=== PATIENT | female | born 1965 | race Caucasian/White ===

== ENCOUNTER 2016-03-23 07:41 | Observation (INO) | payer BC, OTHER ==
[2016-03-23] MEDS ORDERED: SODIUM CHLORIDE 1,000 ML IV STA (08:15)
[2016-03-23] MEDS ORDERED: ACTIVATED CHARCOAL 260 MG CAPSULE PO ONE (08:20)
--- NOTE | 2016-03-23 08:22 | PDOC ---
History of Present Illness - History of Present Illness Initial Comments: 03/23/16 08:26 The patient is a 50 year old female with history of Sjogren's syndrome, hypertension, asthma who presents to the ED after an accidental overdose this morning. She states she was started on 0.1 mg of Clonidine and a Prednisone taper yesterday for an acute Sjogren flare up. This morning around 6:30 she accidentally took 6 Clonidine's after mistaking the bottle for Prednisone, prompting her to come to the ED. She complains of mild, squeezing headache and mild lightheadedness on evaluation. No chest pain or shortness of breath. No LOC. <Mildred Mccord - Last Filed: 03/23/16 08:54> - General History Source: Patient Exam Limitations: No Limitations <Eugenio Duff - Last Filed: 03/23/16 10:22> - General Chief Complaint: Overdose Stated Complaint: LIGHT HEADACHE Time Seen by Provider: 03/23/16 08:04 Past History <Mildred Mccord - Last Filed: 03/23/16 08:54> - Past Medical History Asthma: Yes HTN: Yes Other medical history: SJORGRENS - Surgical History Appendectomy: Yes Cholecystectomy: Yes - Psycho/Social/Smoking Cessation Hx Suicidal Ideation: No Smoking History: Never smoked Hx Alcohol Use: Yes (SOCIAL) Drug/Substance Use Hx: No Substance Use Type: None <Eugenio Duff - Last Filed: 03/23/16 10:22> - Past Medical History Allergies/Adverse Reactions: Allergies Allergy/AdvReac Type Severity Reaction Status Date / Time Sulfa (Sulfonamide Allergy Rash Verified 03/23/16 07:47 Antibiotics) banana AdvReac Vomiting Verified 03/23/16 07:49 Home Medications: Ambulatory Orders Albuterol Sulfate [Proair Respiclick] 1 inh IH QID PRN 03/23/16 Celecoxib [Celebrex] 200 mg PO DAILY PRN 03/23/16 Cetirizine HCl [Zyrtec -] 10 mg PO DAILY 03/23/16 Cevimeline HCl [Evoxac] 30 mg PO TID 03/23/16 Clonidine HCl [Clonidine HCl ER] 0.1 mg PO DAILY 03/23/16 Esomeprazole Magnesium [Nexium 24Hr] 40 mg PO DAILY 03/23/16 Gabapentin [Neurontin] 300 mg PO DAILY 03/23/16 Hydroxychloroquine Sulfate [Plaquenil] 400 mg PO HS 03/23/16 Montelukast Na [Singulair -] 10 mg PO HS 03/23/16 Olmesartan Medoxomil [Benicar (Nf)] 40 mg PO DAILY 03/23/16 Prednisone [Deltasone] 60 mg PO DAILY 03/23/16 Review of Systems - Review of Systems Able to Perform ROS?: Yes Comments:: 03/23/16 08:29 GENERAL/CONSTITUTIONAL: No fever or chills. No weakness. HEAD, EYES, EARS, NOSE AND THROAT: No change in vision. No ear pain or discharge. No sore throat. CARDIOVASCULAR: No chest pain or shortness of breath. RESPIRATORY: No cough, wheezing, or hemoptysis. GASTROINTESTINAL: No nausea, vomiting, diarrhea or constipation. GENITOURINARY: No dysuria, frequency, or change in urination. MUSCULOSKELETAL: No joint or muscle swelling or pain. No neck or back pain. SKIN: No rash NEUROLOGIC: Diffuse headache, dizziness. No loss of consciousness, or change in strength/sensation. ENDOCRINE: No increased thirst. No abnormal weight change. HEMATOLOGIC/LYMPHATIC: No anemia, easy bleeding, or history of blood clots. ALLERGIC/IMMUNOLOGIC: No hives or skin allergy. <Mildred Mccord - Last Filed: 03/23/16 08:54> *Physical Exam - Vital Signs Last Vital Signs Temp Pulse Resp BP Pulse Ox 97.8 F 81 18 137/73 96 03/23/16 07:43 03/23/16 07:43 03/23/16 07:43 03/23/16 07:43 03/23/16 07:43 - Physical Exam Comments: 03/23/16 08:42 GENERAL: Awake, alert, and fully oriented, in no acute distress HEAD: No signs of trauma EYES: PERRLA, EOMI, sclera anicteric, conjunctiva clear ENT: Auricles normal inspection, hearing grossly normal, nares patent, oropharynx clear without exudates. Moist mucosa NECK: Normal ROM, supple, no lymphadenopathy, JVD, or masses LUNGS: Breath sounds equal, clear to auscultation bilaterally. No wheezes, and no crackles HEART: Regular rate and rhythm, normal S1 and S2, no murmurs, rubs or gallops ABDOMEN: Soft, nontender, normoactive bowel sounds. No guarding, no rebound. No masses EXTREMITIES: Normal range of motion, no edema. No clubbing or cyanosis. No cords, erythema, or tenderness NEUROLOGICAL: Cranial nerves II through XII grossly intact. Normal speech, normal gait SKIN: Warm, Dry, normal turgor, no rashes or lesions noted. <Mildred Mccord - Last Filed: 03/23/16 08:54> - Vital Signs Last Vital Signs Temp Pulse Resp BP Pulse Ox 97.8 F 81 18 137/73 96 03/23/16 07:43 03/23/16 07:43 03/23/16 07:43 03/23/16 07:43 03/23/16 07:43 <Eugenio Duff - Last Filed: 03/23/16 10:22> Heart Score/ECG Review #1 ECG reviewed & interpreted by me at: 08:25 03/23/16 08:26 NSR 74 with 1st degree AV block, T wave flat III, no std/woodrow, normal axis, QTC 455 msec <Eugenio Duff - Last Filed: 03/23/16 10:22> ED Treatment Course - LABORATORY CBC & Chemistry Diagram: 03/23/16 08:20 03/23/16 08:20 <Mildred Mccord - Last Filed: 03/23/16 08:54> - LABORATORY CBC & Chemistry Diagram: 03/23/16 08:20 03/23/16 08:20 <Eugenio Duff - Last Filed: 03/23/16 10:22> Medical Decision Making - Medical Decision Making 03/23/16 08:16 A portion of this note was documented by scribe services under my direction. I have reviewed the details of the note, within reason, and agree with the documentation with the following case summary and management plan written by me. Patient treated in the ED. Nursing notes are reviewed and incorporated into the medical decision-making. Vital signs reviewed. Peripheral IV access obtained by the nurse, laboratory studies are drawn and sent, reviewed and interpreted by myself. Vital Signs Temp Pulse Resp BP Pulse Ox 97.8 F 81 18 137/73 96 03/23/16 07:43 03/23/16 07:43 03/23/16 07:43 03/23/16 07:43 03/23/16 07:43 50-year-old female with past medical history of hypertension, Sjogren syndrome, asthma presents to the emergency department for accidental overdose of 6 tablets of 0.1 mg of clonidine at 6:30 this morning. The patient saw her primary care physician yesterday and was diagnosed with acute flareup of Sjogren syndrome. She was initiated on 6 tablets of 10 mg prednisone daily and for additional assistance with her blood pressure, she was started on 0.1 mg of clonidine daily. This morning, approximately 6:30, the patient thought that she was taking her prednisone because the bottles were the same but she actually took 6 tablets of 0.1 mg of clonidine. Since then, patient started feel tension- like headache and lightheadedness and dizziness but denies any chest pain or shortness of breath. The patient is not altered. I discussed the case with the Poison Control Center. He recommends initiating activated charcoal even if 2 hours postingestion and an observation of the minimum of 14 hours. We'll give IV fluids. When necessary Narcan if patient becomes altered. We'll obtain labs and admit the patient to the hospital for telemetry. 03/23/16 10:21 CBC, BMP 03/23/16 08:20 03/23/16 08:20 CMP Sodium 139 mmol/L (136-145) 03/23/16 08:20 Potassium 3.8 mmol/L (3.5-5.1) 03/23/16 08:20 Chloride 104 mmol/L (98-107) 03/23/16 08:20 Carbon Dioxide 25 mmol/L (21-32) 03/23/16 08:20 Anion Gap 10 (8-16) 03/23/16 08:20 BUN 15 mg/dL (7-18) 03/23/16 08:20 Creatinine 0.7 mg/dL (0.55-1.02) 03/23/16 08:20 Creat Clearance w eGFR > 60 (>60) 03/23/16 08:20 Random Glucose 167 mg/dL (74-106) H 03/23/16 08:20 Calcium 8.7 mg/dL (8.5-10.1) 03/23/16 08:20 Phosphorus 2.7 mg/dL (2.5-4.9) 03/23/16 08:20 Magnesium 2.0 mg/dL (1.8-2.4) 03/23/16 08:20 Total Bilirubin 0.5 mg/dL (0.2-1.0) 03/23/16 08:20 AST 19 U/L (15-37) 03/23/16 08:20 ALT 29 U/L (12-78) 03/23/16 08:20 Alkaline Phosphatase 65 U/L (45-117) 03/23/16 08:20 Creatine Kinase 312 IU/L (26-192) H 03/23/16 08:20 CK-MB (CK-2) 8.402 ng/ml (0.5-3.6) H 03/23/16 08:20 Troponin I < 0.02 ng/ml (0.00-0.05) 03/23/16 08:20 Total Protein 7.6 g/dl (6.4-8.2) 03/23/16 08:20 Albumin 3.7 g/dl (3.4-5.0) 03/23/16 08:20 Urine Test Results Urine Color Ltyellow 03/23/16 08:33 Urine Appearance Clear 03/23/16 08:33 Urine pH 6.0 (5.0-8.0) 03/23/16 08:33 Ur Specific [place] 1.014 (1.001-1.035) 03/23/16 08:33 Urine Protein Negative (NEGATIVE) 03/23/16 08:33 Urine Glucose (UA) Negative (NEGATIVE) 03/23/16 08:33 Urine Ketones Negative (NEGATIVE) 03/23/16 08:33 Urine Blood Negative (NEGATIVE) 03/23/16 08:33 Urine Nitrite Negative (NEGATIVE) 03/23/16 08:33 Urine Bilirubin Negative (NEGATIVE) 03/23/16 08:33 Ur Leukocyte Esterase Negative (NEGATIVE) 03/23/16 08:33 Pt reassessed. Appears well. Case discussed with Dr. Dietrich. Will admit to tele observation. Case discussed in detail with admitting physician including history, physical exam and ancillary studies. Admitting physician has assumed care for the patient, will follow all pending diagnostics and will complete the evaluation and treatment. <Eugenio Duff - Last Filed: 03/23/16 10:22> *DC/Admit/Observation/Transfer - Attestations Scribe Attestion: 03/23/16 08:42 Documentation prepared by Mildred Mccord, acting as medical claims representative for Eugenio Duff MD. <Mildred Mccord - Last Filed: 03/23/16 08:54> - Discharge Dispostion Admit: Yes <Eugenio Duff - Last Filed: 03/23/16 10:22> Diagnosis at time of Disposition: Clonidine overdose Qualifiers: Encounter type: initial encounter Injury intent: accidental or unintentional Qualified Code(s): T46.5X1A - Poisoning by other antihypertensive drugs, accidental (unintentional), initial encounter - Discharge Dispostion Condition at time of disposition: Stable - Referrals Referrals: Bandar Corbett [Primary Care Provider] -
[2016-03-23] MEDS ORDERED: CHARCOAL/WATER SOLUTION 25 GM/120 ML TUBE ONE ×3 (08:30→08:37)
[2016-03-23 08:33] LABS: BASOPHIL 0.2 % (0-2.0); MCH 28.2 pg (25.7-33.7); MCHC 33.3 g/dl (32.0-36.0); MEAN CELL VOLUME 84.8 fl (80-96); MEAN PLT VOLUME 8.1 fl (7.5-11.1); NEUTROPHILS 84.8 % (42.8-82.8); PLATELET COUNT 250 K/MM3 (134-434); RDW 14.3 % (11.6-15.6)
[2016-03-23] MEDS ORDERED: CHARCOAL/SORBITOL SOLUTION 25 GM/120 ML BTL PO ONE (08:36)
[2016-03-23] MEDS ORDERED: ACETAMINOPHEN 325 MG TABLET (FP) PO ONE (08:40)
[2016-03-23 08:44] LABS: INR 1.08 (0.82-1.09); PROTHROMBIN TIME (PATIENT) 11.9 SEC (9.98-11.88)
[2016-03-23 08:47] LABS: ACTIVATED PTT 29.6 SECONDS (26.9-34.4)
[2016-03-23 09:12] LABS: ALBUMIN 3.7 g/dl (3.4-5.0); ANION GAP 10 (8-16); BILIRUBIN,TOTAL 0.5 mg/dL (0.2-1.0); CALCIUM 8.7 mg/dL (8.5-10.1); CO2 25 mmol/L (21-32); CREATININE 0.7 mg/dL (0.55-1.02); GLUCOSE,RANDOM 167 mg/dL (74-106); PHOSPHOROUS 2.7 mg/dL (2.5-4.9); SGOT/AST 19 U/L (15-37); SGPT/ALT 29 U/L (12-78); TOT PROT 7.6 g/dl (6.4-8.2)
[2016-03-23 09:14] LABS: ALK PHOS 65 U/L (45-117); TROPONIN I < 0.02 ng/ml (0.00-0.05)
[2016-03-23 09:27] LABS: URINE APPEARANCE CLEAR; URINE BILIRUBIN NEGATIVE (NEGATIVE); URINE BLOOD NEGATIVE (NEGATIVE); URINE COLOR LTYELLOW; URINE GLUCOSE (UA) NEGATIVE (NEGATIVE); URINE KETONE NEGATIVE (NEGATIVE); URINE LEUK ESTERASE NEGATIVE (NEGATIVE); URINE NITRITE NEGATIVE (NEGATIVE); URINE PROTEIN NEGATIVE (NEGATIVE); URINE UROBILINOGEN NEGATIVE E.U./dl (0.2-1.0)
--- NOTE | 2016-03-23 09:29 | EKG ---
Test Reason : Blood Pressure : / mmHG Vent. Rate : 074 BPM Atrial Rate : 074 BPM P-R Int : 204 ms QRS Dur : 106 ms QT Int : 410 ms P-R-T Axes : 049 013 041 degrees QTc Int : 455 ms NORMAL SINUS RHYTHM NORMAL ECG WHEN COMPARED WITH ECG OF 24-MAY-1998 15:41, QRS DURATION HAS INCREASED Confirmed by MITCH MONTES MD ([id number]) on 03/23/2016 9:29:03 AM Referred By: Confirmed By:MITCH MONTES MD
[2016-03-23] MEDS ORDERED: ALBUTEROL SO4 6.7 GM HFA INHALER IH PRN (11:17)
[2016-03-23] MEDS: SODIUM CHLORIDE 0.45% 1,000 ML IV SCH ×2 (11:30→21:46)
--- NOTE | 2016-03-23 11:33 | HP ---
CHIEF COMPLAINT: "i took too much clonidine) PCP: Dr Peace Rheum: Dr Felipe HISTORY OF PRESENT ILLNESS: This is a 50 yo F with PMH of Sjogen's, HTN and asthma, who presents to ED due to accidental OD on clonidine. She states that she started having a recent exacerbation of sjogens 1 w ago, which affected her L eye, making it feel very dry, irritated, swollen eyelid, conjunctival injection, photophobia and pain with movement of the eye. She also has dry mouth. Her eye has never been affected before. Her PCP placed her on a steroid taper 60 prednisone and on clonidine. this morning she accidentally took 6 clonidines 0.1 instead of prednisone. She complain of mild throbbing h/a and mild lightheadedness. She deneis chest pain, palpitations, visual changes, n/v, abdominal pain, feeling hot or cold, diarrhea, constipation or dysuria. In ed her vitals are stable and her respiration is not suppressed. She states that she feels rather well. ER course was notable for: (1) NS bolus (2) activated charcoal (3)labs, ekg Recent Travel: denies PAST MEDICAL HISTORY: as above PAST SURGICAL HISTORY: cholecystectomy, appendectomy, partial hysterectomy due to fibroid, tonsillectomy Social History: lives at home with sister Smoking: denies Alcohol: 2 drinks/week Drugs: denies Family History: HTN Allergies Sulfa (Sulfonamide Antibiotics) Allergy (Verified 03/23/16 07:47) Rash banana Adverse Reaction (Verified 03/23/16 07:49) Vomiting HOME MEDICATIONS: Medication Instructions Recorded Albuterol Sulfate [Proair 1 inh IH QID PRN 03/23/16 Respiclick] Celecoxib [Celebrex] 200 mg PO DAILY PRN 03/23/16 Cetirizine HCl [Zyrtec -] 10 mg PO DAILY 03/23/16 Cevimeline HCl [Evoxac] 30 mg PO TID 03/23/16 Clonidine HCl [Clonidine HCl ER] 0.1 mg PO DAILY 03/23/16 Esomeprazole Magnesium [Nexium 40 mg PO DAILY 03/23/16 24Hr] Gabapentin [Neurontin] 300 mg PO DAILY 03/23/16 Hydroxychloroquine Sulfate 400 mg PO HS 03/23/16 [Plaquenil] Montelukast Na [Singulair -] 10 mg PO HS 03/23/16 Olmesartan Medoxomil [Benicar (Nf)] 40 mg PO DAILY 03/23/16 Prednisone [Deltasone] 60 mg PO DAILY 03/23/16 REVIEW OF SYSTEMS CONSTITUTIONAL: Absent: fever, chills, diaphoresis, generalized weakness HEENT: Absent: rhinorrhea, nasal congestion, throat pain, throat swelling CARDIOVASCULAR: Absent: chest pain, syncope, palpitations, irregular heart rate, peripheral edema RESPIRATORY: Absent: cough, shortness of breath, orthopnea GASTROINTESTINAL: Absent: abdominal pain, abdominal distension, nausea, vomiting, diarrhea, constipation GENITOURINARY: Absent: dysuria, frequency, urgency MUSCULOSKELETAL: Absent: myalgia, arthralgia SKIN: Absent: rash, itching, pallor HEMATOLOGIC/IMMUNOLOGIC: Absent: frequent infections ENDOCRINE: Absent: heat intolerance, cold intolerance NEUROLOGIC: Absent: focal weakness or paresthesias, unsteady gait, seizure PSYCHIATRIC: Absent: hallucinations. PHYSICAL EXAMINATION Vital Signs - 24 hr 03/23/16 10:42 Pulse Rate [ 79 Apical] Respiratory 20 Rate Blood Pressure 155/89 [Right Arm] O2 Sat by Pulse 100 Oximetry (%) GENERAL: Awake, alert, and fully oriented, in no acute distress. HEAD: Normal with no signs of trauma. EYES: Pupils equal, round and reactive to light, extraocular movements intact, sclera anicteric, L eye injected conjunctiva, edematous eyelid, pain with movement of eye. No lid lag. EARS, NOSE, THROAT: Moist mucous membranes. NECK: supple LUNGS: Breath sounds equal, clear to auscultation bilaterally HEART: Regular rate and rhythm, normal S1 and S2 ABDOMEN: Soft, nontender, not distended, normoactive bowel sounds MUSCULOSKELETAL: No CVA tenderness. UPPER EXTREMITIES: 2+ pulses, No peripheral edema. LOWER EXTREMITIES: 2+ pulses, warm, well-perfused. No calf tenderness. No peripheral edema. NEUROLOGICAL: Cranial nerves II-XII grossly intact. Normal speech. PSYCHIATRIC: Cooperative. Good eye contact. SKIN: Warm, dry ASSESSMENT/PLAN: This is a 50 yo F with PMH of Sjogen's, HTN and asthma, who presents to ED due to accidental OD on clonidine. Clonidine OD -accidental, .06mg total -no OD symptoms at this time -mild h/a: tylenol prn -activated charcoal in ED -IVF bolus, maintenance @ 100 -currently hemodynamically stable -cardiac monitoring -will observe for respiratory supression (intubate to treat) , tachycardia ( atropine to treat), hypotension (fluids and trendelenberg to treat), rebound HTN (nitroprusside to treat) and hypothermia (fabio hugger to treat). Sjogens exacerbation -affecting L eye and mouth -continue rpednisone taper 60 d -plaquenil, cevimeline -f/u with rheumatology and opthalmology outpatient HTN -hold benicar asthma -nebs prn FEN NS@100 lytes stable DVT GI PPX: SCD, diet Na restricted diet Dispo: obs in tele Problem List - Problem (1) Clonidine overdose Code(s): T46.5X1A - POISONING BY OTH ANTIHYPERTN DRUGS, ACCIDENTAL, INIT Qualifiers: Encounter type: initial encounter Injury intent: accidental or unintentional Qualified Code(s): T46.5X1A - Poisoning by other antihypertensive drugs, accidental (unintentional), initial encounter (2) Sjogrens syndrome Code(s): M35.00 - SICCA SYNDROME, UNSPECIFIED (3) HTN (hypertension) Code(s): I10 - ESSENTIAL (PRIMARY) HYPERTENSION (4) Asthma Code(s): J45.909 - UNSPECIFIED ASTHMA, UNCOMPLICATED Visit type - Emergency Visit Emergency Visit: Yes ED Registration Date: 03/23/16 Care time: The patient presented to the Emergency Department on the above date and was hospitalized for further evaluation of their emergent condition. - New Patient This patient is new to me today: Yes Date on this admission: 03/23/16 - Critical Care Critical Care patient: No
[2016-03-23] MEDS ORDERED: CELECOXIB 200 MG CAPSULE PO PRN (11:39)
--- NOTE | 2016-03-23 11:52 | PN ---
Teaching Attending Note Name of Resident: Hilda Luu ATTENDING PHYSICIAN STATEMENT I saw and evaluated the patient. I reviewed the resident's note and discussed the case with the resident. I agree with the resident's findings and plan as documented. SUBJECTIVE: Patient is a 50yo female with PMHx of Sjorgen's ,Asthma, presented to the emergency room since has taken six pills of clonidine of 0.1mg by mistake instead of taking her prednisone (6x10mg =60mg )pills that was given to her by her PMD. stated that she called the poison control center and was suggested to go to the emergency room for further monitoring. Patient was given charcoal in the emergency room. OBJECTIVE: Vital Signs Temperature 97.8 F 03/23/16 07:43 Pulse Rate 79 03/23/16 10:42 Respiratory Rate 20 03/23/16 10:42 Blood Pressure 155/89 03/23/16 10:42 O2 Sat by Pulse Oximetry (%) 100 03/23/16 10:42 GENERAL: Awake, alert, and fully oriented, in no acute distress. HEAD: Normal with no signs of trauma. EYES: Pupils equal, round and reactive to light, extraocular movements intact, sclera anicteric, L eye with edematous eyelid, pain with movement of eye. EARS, NOSE, THROAT: Moist mucous membranes. NECK: supple LUNGS: Breath sounds equal, clear to auscultation bilaterally HEART: Regular rate and rhythm, normal S1 and S2 ABDOMEN: Soft, nontender, not distended, normoactive bowel sounds MUSCULOSKELETAL: No CVA tenderness. UPPER EXTREMITIES: 2+ pulses, No peripheral edema. LOWER EXTREMITIES: 2+ pulses, warm, well-perfused. No calf tenderness. No peripheral edema. NEUROLOGICAL: Cranial nerves II-XII grossly intact. Normal speech. PSYCHIATRIC: Cooperative. Good eye contact. SKIN: Warm, dry CBCD WBC 8.0 K/mm3 (4.0-10.0) 03/23/16 08:20 RBC 4.68 M/mm3 (3.60-5.2) 03/23/16 08:20 Hgb 13.2 GM/dL (10.7-15.3) 03/23/16 08:20 Hct 39.7 % (32.4-45.2) 03/23/16 08:20 MCV 84.8 fl (80-96) 03/23/16 08:20 MCHC 33.3 g/dl (32.0-36.0) 03/23/16 08:20 RDW 14.3 % (11.6-15.6) 03/23/16 08:20 Plt Count 250 K/MM3 (134-434) 03/23/16 08:20 MPV 8.1 fl (7.5-11.1) 03/23/16 08:20 CMP Sodium 139 mmol/L (136-145) 03/23/16 08:20 Potassium 3.8 mmol/L (3.5-5.1) 03/23/16 08:20 Chloride 104 mmol/L (98-107) 03/23/16 08:20 Carbon Dioxide 25 mmol/L (21-32) 03/23/16 08:20 Anion Gap 10 (8-16) 03/23/16 08:20 BUN 15 mg/dL (7-18) 03/23/16 08:20 Creatinine 0.7 mg/dL (0.55-1.02) 03/23/16 08:20 Creat Clearance w eGFR > 60 (>60) 03/23/16 08:20 Random Glucose 167 mg/dL (74-106) H 03/23/16 08:20 Calcium 8.7 mg/dL (8.5-10.1) 03/23/16 08:20 Total Bilirubin 0.5 mg/dL (0.2-1.0) 03/23/16 08:20 AST 19 U/L (15-37) 03/23/16 08:20 ALT 29 U/L (12-78) 03/23/16 08:20 Alkaline Phosphatase 65 U/L (45-117) 03/23/16 08:20 Total Protein 7.6 g/dl (6.4-8.2) 03/23/16 08:20 Albumin 3.7 g/dl (3.4-5.0) 03/23/16 08:20 CARDIAC ENZYMES Creatine Kinase 312 IU/L (26-192) H 03/23/16 08:20 Troponin I < 0.02 ng/ml (0.00-0.05) 03/23/16 08:20 Current Medications Generic Name Dose Route Start Last Admin Trade Name Freq PRN Reason Stop Dose Admin Gabapentin 300 mg 03/24/16 10:00 Neurontin - PO DAILY GILDA Hydroxychloroquine Sulfate 400 mg 03/23/16 22:00 Plaquenil - PO HS GILDA Sodium Chloride 1,000 mls @ 100 mls/hr 03/23/16 11:30 03/23/16 11:30 1/2 Normal Saline IV 100 mls/hr ASDIR GILDA Administration Montelukast Sodium 10 mg 03/23/16 22:00 Singulair - PO HS GILDA Non-Formulary Medication 1 inh 03/23/16 11:17 Albuterol Sulfate [Proair Respiclick] IH QID PRN WHEEZING Medication Instructions Recorded Albuterol Sulfate [Proair 1 inh IH QID PRN 03/23/16 Respiclick] Celecoxib [Celebrex] 200 mg PO DAILY PRN 03/23/16 Cetirizine HCl [Zyrtec -] 10 mg PO DAILY 03/23/16 Cevimeline HCl [Evoxac] 30 mg PO TID 03/23/16 Clonidine HCl [Clonidine HCl ER] 0.1 mg PO DAILY 03/23/16 Esomeprazole Magnesium [Nexium 40 mg PO DAILY 03/23/16 24Hr] Gabapentin [Neurontin] 300 mg PO DAILY 03/23/16 Hydroxychloroquine Sulfate 400 mg PO HS 03/23/16 [Plaquenil] Montelukast Na [Singulair -] 10 mg PO HS 03/23/16 Olmesartan Medoxomil [Benicar (Nf)] 40 mg PO DAILY 03/23/16 Prednisone [Deltasone] 60 mg PO DAILY 03/23/16 ASSESSMENT AND PLAN: This is a 50 yo F with PMHx of Sjogen's, HTN and asthma, who presents to ED due to accidental OD on clonidine. # Accidental Clonidine OD (0.6mg) : comfortable with no acute distress, no signs of hypotension, patient is being admitted for observation in Tele. IVF continue @ 100/hr ,cardiac monitoring # Hx of Sjogens Disease , with L eye swelling on prednisone taper 60mg daily continue plaquenil, cevimeline -f/u with rheumatology and opthalmology outpatient # HTN Uncontrolled will monitor, will not give her any medication since patient has taken 6 of Clonidine with possibility that the BP will drop. # asthma stable continue home meds DVT Px: SCD obs in tele
[2016-03-23] MEDS: predniSONE 20 MG TABLET (UD) PO SCH (12:08)
[2016-03-23] MEDS: LORATADINE 10 MG TABLET PO SCH (12:08)
[2016-03-23] MEDS: PANTOPRAZOLE 40 MG TABLET (FP) PO SCH (12:08)
[2016-03-23 12:17] VITALS: BMI 44.4
[2016-03-23 13:37] LABS: URINE MARIJUANA THC NEGATIVE ng/ml (CUTOFF=50)
[2016-03-23] MEDS ORDERED: ACETAMINOPHEN 325 MG TABLET (FP) PO PRN (13:43)
[2016-03-23] MEDS ORDERED: CEVIMELINE HCL 30 MG PO SCH (14:00)
[2016-03-23 14:06] LABS: SALICYLATE < 4.0 mg/dl (0.0-30.0)
[2016-03-23] MEDS ORDERED: MONTELUKAST NA 10 MG TABLET PO SCH (22:00)
[2016-03-23] MEDS ORDERED: HYDROXYCHLOROQUINE SO4 200 MG TABLET (FP) PO SCH (22:00)
[2016-03-23] MEDS ORDERED: diphenhydrAMINE HCL 25 MG CAPSULE (FP) PO ONE (22:05)
[2016-03-23] MEDS ORDERED: DOCUSATE SODIUM 100 MG CAPSULE (FP) PO ONE (23:00)
[2016-03-24] MEDS ORDERED: PT OWN MED DRAWER 7, Y5N ONE (09:11)
[2016-03-24 09:40] VITALS: BP 154/82; PULSE 74; TEMP 98.2
[2016-03-24] MEDS: PANTOPRAZOLE 40 MG TABLET (FP) PO SCH (09:43)
[2016-03-24] MEDS: predniSONE 20 MG TABLET (UD) PO SCH (09:43)
[2016-03-24] MEDS ORDERED: MAG HYDROX/AL HYDROX/SIMETH 30 ML UNIT-DOSE CUP PO PRN (09:50)
[2016-03-24] MEDS: LORATADINE 10 MG TABLET PO SCH (09:52)
[2016-03-24] MEDS ORDERED: GABAPENTIN 300 MG CAPSULE (FP) PO SCH (10:00)
[2016-03-24] MEDS ORDERED: PATIENT'S OWN MEDICATION (NON-FORMULARY) (Clonidine Hcl [Clonidine Hcl Er] 0.1 MG) PO SCH (11:00)
[2016-03-24] MEDS ORDERED: VALSARTAN 160 MG TABLET (UD) PO SCH (11:00)
[2016-03-24] MEDS ORDERED: cloNIDine HCL 0.1 MG TABLET PO ONE (12:15)
[2016-03-24] MEDS: SODIUM CHLORIDE 0.45% 1,000 ML IV SCH (12:18)
--- NOTE | 2016-03-24 12:58 | PN ---
Teaching Attending Note Name of Resident: Hilda Luu ATTENDING PHYSICIAN STATEMENT I saw and evaluated the patient. I reviewed the resident's note and discussed the case with the resident. I agree with the resident's findings and plan as documented. SUBJECTIVE:states he has increase blurred vision of the Left eye. has appt today to follow up with opthamoligist. denies CP, palpitaitons, ERAZO or dizziness OBJECTIVE: Last Vital Signs Temp Pulse Resp BP Pulse Ox 98.2 F 74 16 154/82 96 03/24/16 09:00 03/24/16 09:00 03/24/16 09:00 03/24/16 09:00 03/24/16 11:00 General NAD HEENT injected conjunctive of L eye CV S1 S2 RRR no murmur/rub/gallop ASSESSMENT AND PLAN: 50yo F with PMH Sjorgen and asthma presented to the ER and was admitted for further evaluation of their emergent condition 1. accidental clonidine overdose- been monitored for 24H at this time. BP controlled. remains asymptomatic. will resume clonidine at accurate dosing 2. Sjorgen- with significant eye involvement. currently on steroids. has appt today to follow up with opthamology 3. d/c home
--- NOTE | 2016-03-24 13:45 | DS ---
Physical Exam: SUBJECTIVE: Patient seen and examined Patient resting in bed NAD. no acute events overnight. afebrile and hemodynamicallys table. BP 170 systolic but no home BP meds given this AM. No events on telemetry. Feels well other than mild heartburn relieved by mylanta and b/l eye discomfort asssocated with sjogens. Denies h/a, chest pain, sob, palpitations, dizziness, n/v, abd pain, diarrhea or dysuria. OBJECTIVE: Vital Signs Period Temp Pulse Resp BP Sys/Davis Pulse Ox Last 24 Hr 96.1 F-98.2 F 67-81 16-20 146-170/80-90 95-98 PHYSICAL EXAM GENERAL: Awake, alert, and fully oriented, in no acute distress. HEAD: Normal with no signs of trauma. EYES: Pupils equal, round and reactive to light, extraocular movements intact, sclera anicteric, L eye injected conjunctiva, edematous eyelid, pain with movement of eye. No lid lag. EARS, NOSE, THROAT: Moist mucous membranes. NECK: supple LUNGS: Breath sounds equal, clear to auscultation bilaterally HEART: Regular rate and rhythm, normal S1 and S2 ABDOMEN: Soft, nontender, not distended, normoactive bowel sounds MUSCULOSKELETAL: No CVA tenderness. UPPER EXTREMITIES: 2+ pulses, No peripheral edema. LOWER EXTREMITIES: 2+ pulses, warm, well-perfused. No calf tenderness. No peripheral edema. NEUROLOGICAL: Cranial nerves II-XII grossly intact. Normal speech. PSYCHIATRIC: Cooperative. Good eye contact. SKIN: Warm, dry LABS HOSPITAL COURSE: Date of Admission:03/23/16 This is a 50 yo F with PMH of Sjogen's, HTN and asthma, who presents to ED due to accidental OD on clonidine. She states that she started having a recent exacerbation of sjogens 1 w ago, which affected her L eye, making it feel very dry, irritated, swollen eyelid, conjunctival injection, photophobia and pain with movement of the eye. She also has dry mouth. Her eye has never been affected before. Her PCP placed her on a steroid taper 60 prednisone and on clonidine. this morning she accidentally took 6 clonidines 0.1 instead of prednisone. She complain of mild throbbing h/a and mild lightheadedness. She deneis chest pain, palpitations, visual changes, n/v, abdominal pain, feeling hot or cold, diarrhea, constipation or dysuria. In ed her vitals are stable and her respiration is not suppressed. She states that she feels rather well. She was placed in obs due to accidental Clonidine OD (.06mg total). She showed no OD symptoms overnight. She [facility] and instructed to f/u with PCP and rheumatology right away for the sjogens exacerbation. Date of Discharge: 03/24/16 Minutes to complete discharge: 30 (na) Discharge Summary Reason For Visit: CLONIDINE OVERDOSE Condition: Stable - Instructions Diet, Activity, Other Instructions: You were observed due to clonidine overdose. you did not exibit any symptoms of overdose. You may resume all of your home medications including clonidine. Be more careful when taking medication, we suggest applying color labels to all the bottles. Please follow up with your primary docotor and your client administrator today to further manage the sjogens exacerbation in the eyes. Return to hospital if severe symptoms emerge Referrals: Bandar Corbett [Primary Care Provider] - 1 Week Disposition: HOME - Home Medications Comprehensive Discharge Medication List: Ambulatory Orders Albuterol Sulfate [Proair Respiclick] 1 inh IH QID PRN 03/23/16 Celecoxib [Celebrex] 200 mg PO DAILY PRN 03/23/16 Cetirizine HCl [Zyrtec -] 10 mg PO DAILY 03/23/16 Cevimeline HCl [Evoxac] 30 mg PO TID 03/23/16 Clonidine HCl [Clonidine HCl ER] 0.1 mg PO DAILY 03/23/16 Esomeprazole Magnesium [Nexium 24Hr] 40 mg PO DAILY 03/23/16 Gabapentin [Neurontin] 300 mg PO DAILY 03/23/16 Hydroxychloroquine Sulfate [Plaquenil] 400 mg PO HS 03/23/16 Montelukast Na [Singulair -] 10 mg PO HS 03/23/16 Olmesartan Medoxomil [Benicar (Nf)] 40 mg PO DAILY 03/23/16 Prednisone [Deltasone] 60 mg PO DAILY 03/23/16 Problem List - Problems (1) Clonidine overdose Code(s): T46.5X1A - POISONING BY OTH ANTIHYPERTN DRUGS, ACCIDENTAL, INIT Qualifiers: Encounter type: initial encounter Injury intent: accidental or unintentional Qualified Code(s): T46.5X1A - Poisoning by other antihypertensive drugs, accidental (unintentional), initial encounter (2) Sjogrens syndrome Code(s): M35.00 - SICCA SYNDROME, UNSPECIFIED (3) HTN (hypertension) Code(s): I10 - ESSENTIAL (PRIMARY) HYPERTENSION (4) Asthma Code(s): J45.909 - UNSPECIFIED ASTHMA, UNCOMPLICATED This patient is new to me today: No Emergency Visit: Yes ED Registration Date: 03/23/16 Care time: The patient presented to the Emergency Department on the above date and was hospitalized for further evaluation of their emergent condition. Critical Care patient: No - Discharge Referral Referred to [facility] Med P.C[facility] No
== END 2016-03-24 12:53 | disposition home or self-care (01) ==
LOC: JER 07:41 → JERBED 10:25 → J4W 19:23
PROVIDERS: ADMIT Internal Medicine; ATTEND Internal Medicine
DX: T46.5X1A Poisoning by other antihypertensive drugs, accidental (unintentional), initial encounter (principal); Y92.098 Other place in other non-institutional residence as the place of occurrence of the external cause; I10 Essential (primary) hypertension; J45.909 Unspecified asthma, uncomplicated; M35.00 Sjogren syndrome, unspecified
CPT/HCPCS: 36415; 80053; 80307; 81003; 82550; 82553; 83735; 84100; 84484; 85025; 85610; 85730; 93005; 93010; 99285-25; G0378